=== PATIENT | female | born 1950 | race Caucasian/White ===

== ENCOUNTER 2019-10-29 12:11 | Outpatient (CLI) | payer MEDICARE, SELFPAY ==
--- NOTE | ~2019-10-29 | MM_ITS ---
EXAMINATION: MM screening [facility] BI w jordan HISTORY: Screening TECHNIQUE: Craniocaudal and mediolateral oblique 3-D tomosynthesis images were obtained and synthetic 2-D images were generated. CAD analysis was submitted and interpreted. COMPARISON: Comparison to multiple prior studies sequentially, with oldest reviewed study dated 05/16. BREAST PARENCHYMAL COMPOSITION: There are scattered areas of fibroglandular density. FINDINGS: There is no evidence of suspicious mass, calcification, or architectural distortion to sugg est malignancy in either breast. There has been no suspicious interval change. IMPRESSION: 1. No mammographic evidence of malignancy. 2. Recommend routine screening mammography in one year. BI-RADS Category 1: Negative Reviewed, dictated and finalized at location A.
== END 2019-10-29 12:12 | disposition home or self-care (01) ==
LOC: CHSIMG 12:17
PROVIDERS: PCP Internal Medicine; Visit Provider Internal Medicine
DX: Z12.31 Encounter for screening mammogram for malignant neoplasm of breast (principal)
CPT/HCPCS: 77063; 77067

== ENCOUNTER 2020-03-23 11:12 | Outpatient (CLI) | payer MEDICARE, SELFPAY ==
[2020-03-23 15:27] LABS: SARS-CoV-2 Ag Negative (Negative)
== END 2020-03-23 11:13 | disposition home or self-care (01) ==
LOC: CHSLAB 11:15
PROVIDERS: PCP Internal Medicine; Visit Provider Internal Medicine
DX: Z20.828 Contact with and (suspected) exposure to other viral communicable diseases (principal)
CPT/HCPCS: 87426

== ENCOUNTER 2021-01-26 12:18 | Outpatient (CLI) | payer MEDICARE, SELFPAY ==
--- NOTE | ~2021-01-26 | DEXA_ITS ---
Bone Density Report Name: Geeta Ontiveros Age: 70 Sex: Female Ethnicity: White Date of : 1950 Indication: postmenopausal; screening for osteoporosis; height loss; hysterectomy; Referring Provider: Karis Salter Study: Bone densitometry was performed. Exam Date: January 26, 2021 Accession number: [id number] Bone Density: Region BMD T-score Z-score Classification AP Spine(L1-L4) 1.234 1.7 3.9 Normal Femoral Neck (Left) 0.644 -1.8 0.1 Osteopenia Total Hip (Left) 0.845 -0.8 0.8 Normal Femoral Neck (Right) 0.644 -1.8 0.1 Osteopenia Total Hip (Right) 0.839 -0.8 0.8 Normal Femoral Neck Mean 0.644 -1.8 0.1 Osteopenia Total Hip Mean 0.842 -0.8 0.8 Normal World Health Organization criteria for BMD impression classify patients as: Normal (T-score at or above -1.0), Osteopenia (T-score between -1.0 and -2.5), or Osteoporosis (T-score at or below -2.5). 10-year Fracture Risk(1): Major Osteoporotic Fracture 11% Hip Fracture 2.0% Reported Risk Factors: [place] (), Neck BMD=0.644, BMI=35.1 (1) FRAX(R) Version 3.08. Fracture probability calculated for an untreated patient. Fracture probability may be lower if the patient has received treatment. Clinical Information Provided by Patient: Has used the following medications: Vitamin D, Calcium Has the following medical conditions: Hysterectomy Patient maximum height was 60 Menopause Age: 43 No regular weight bearing exercise Drinks caffeinated beverages Onset of menses at age 11 Missed period for more than 6 months in a row Impression: The patient has low bone mass, based on the Left Femoral Neck T-score. Discussion: BONE DENSITY IS LOW AT ONE OR MORE SKELETAL SITES. This patient's lowest T-score is low at one or more skeletal sites. It meets the World Health Organization's (WHO) criteria for ?low bone mass? (T-score between -1.0 and -2.5). The patient's 10-year risk of fracture as calculated by FRAX is less than the threshold where pharmacological therapy is recommended by the National Osteoporosis Foundation (NOF). However, all treatment decisions require clinical judgment and consideration of individual patient factors, including patient preferences, comorbidities, previous drug use, risk factors not captured in the FRAX model (e.g., frailty, falls, vitamin D deficiency, increased bone turnover, interval significant decline in bone density) and possible under or overestimation of fracture risk by FRAX. The patient should follow a healthful lifestyle (good nutrition with adequate calcium and vitamin D, and appropriate weight-bearing exercise). Follow-Up: Consider repeating this study in 2 to 3 years to reassess this patient's status, or sooner if there is some new clinical indication. Reporte
--- NOTE | ~2021-01-26 | US_ITS ---
EXAMINATION: US carotid duplex BI DATE: 01/26/2021 12:46 INDICATION: Bilateral carotid stenosis TECHNIQUE: Grayscale, color Doppler, and pulsed Doppler images of the cervical carotid arteries were obtained. The degree of vessel stenosis is placed in one of the following categories: normal, <50%, 5 0-69%, >=70% but less than near-occlusion, near-occlusion, or total occlusion. Note that percent sten osis relative to normal distal artery lumen diameter is indirectly measured from velocity measurement s as described by Irineo, et al. Radiology 2003; 229:340-346. COMPARISON: None. FINDINGS: RIGHT: The right common carotid artery (CCA) peak systolic velocity (PSV) is 87 cm/s. The right internal car otid artery (ICA) PSV is 64 cm/s. The right ICA end-diastolic velocity (EDV) is 22 cm/s. The right IC A/CCA PSV ratio is 0.7. Grayscale and color Doppler images yield an estimate of <50% diameter reducti on from plaque in the ICA. The external carotid artery (ECA) PSV is 98 cm/s. There is antegrade flow in the right vertebral artery. LEFT: The left CCA PSV is 76 cm/s. The left ICA PSV is 85 cm/s. The left ICA EDV is 30 cm/s. The left ICA/C CA PSV ratio is 1.1. Grayscale and color Doppler images yield an estimate of <50% diameter reduction from plaque in the ICA. The ECA PSV is 86 cm/s. There is antegrade flow in the left vertebral artery. IMPRESSION: 1. <50% stenosis in the right internal carotid artery. 2. <50% stenosis in the left internal carotid artery. Reviewed, dictated and finalized at location A.
== END 2021-01-26 12:19 | disposition home or self-care (01) ==
LOC: CHSIMG 12:20
PROVIDERS: PCP Internal Medicine; Visit Provider Internal Medicine
DX: I65.23 Occlusion and stenosis of bilateral carotid arteries (principal); M81.0 Age-related osteoporosis without current pathological fracture
CPT/HCPCS: 77080; 93880

== ENCOUNTER 2021-02-16 08:28 | Outpatient (CLI) | payer MEDICARE, SELFPAY ==
--- NOTE | ~2021-02-16 | MM_ITS ---
EXAMINATION: MM screening [facility] BI w jordan HISTORY: Screening mammogram TECHNIQUE: Craniocaudal and mediolateral oblique 3-D tomosynthesis images were obtained and synthetic 2-D images were generated. CAD analysis was submitted and interpreted. COMPARISON: 10/29/2019, 09/14/2018, 09/04/2017 BREAST PARENCHYMAL COMPOSITION: The breasts are almost entirely fatty. FINDINGS: There is no evidence of suspicious mass, calcification, or architectural distortion to sugg est malignancy in either breast. There has been no suspicious interval change. IMPRESSION: 1. No mammographic evidence of malignancy. 2. Recommend routine screening mammography in one year. BI-RADS Category 1: Negative Reviewed, dictated and finalized at location A. E CIRCULAR SAWYER
== END 2021-02-16 08:29 | disposition home or self-care (01) ==
LOC: CHSIMG 08:30
PROVIDERS: PCP Internal Medicine; Visit Provider Internal Medicine
DX: Z12.31 Encounter for screening mammogram for malignant neoplasm of breast (principal)
CPT/HCPCS: 77063; 77067

== ENCOUNTER 2022-04-25 09:08 | Outpatient (RCR) | payer MEDICARE, SELFPAY ==
--- NOTE | 2022-04-27 07:19 | BUPTOPEVAL1 ---
Assessment and note entered by Rodrigo Jerome Evaluation Information Assessment Status Evaluation Diagnosis right shoulder pain, left knee pain Onset 01/23/22 Subjective Information Pt. reports that she was going down her steps and missed the last step. She reports that she fell onto the right shoulder. She describes increasing pain in the described lateral brachial region. She states that she feels pain with reaching out away from her body, as well as overhead or behind her back. She has not had an MRI or xray. She is right hand dominant. She reports that she is also having knee pain. She has the right knee replaced. She reports that she gets occasional injections into the left knee. She describes a current burning sensation behind the left knee. She noticed that pain beginning about 3-4 months ago. She reports that pain can be noticed with both sitting and standing activities. She reports that her goal is to decrease her arm and leg pain . Reported Pain Level Pain Score 7,4: Self Report Assessment PT Clinical Summary Pt. is a 72 year old female who enters the clinic with left knee pain and right shoulder pain. She presents with impaired shoulder ROM, impaired proximal u.e. strength, pain at the posterior left knee and impaired gait. Continued skilled PT is indicated in order to improve these areas to allow the pt. to be able to complete all IADL's without limitation. Plan of Care Interventions Electrical Stimulation,Hot Pack/Cold Pack,Manual Therapy,Therapeutic Activities,Therapeutic Exercise,Self-Care/Home Management PT Services Indicated Yes Treatment Frequency and 2x/week x 8 visits Duration These treatments will address the objective and functional deficits as defined above. The patient will be advanced safely and appropriately in order for the patient to progress towards his/her prior level of function. Additional exercises will be introduced and as well as a comprehensive home exercise program upon discharge, if needed, ?to ensure carryover of functional gains achieved in the clinic. This treatment plan has been reviewed and agreement upon by the patient.
== END 2022-05-23 15:48 | disposition home or self-care (01) ==
LOC: CHSPT 09:08
PROVIDERS: PCP Internal Medicine; Visit Provider Internal Medicine
DX: M25.511 Pain in right shoulder (principal); M25.562 Pain in left knee
CPT/HCPCS: 97014; 97110; 97140; 97161; G0283

== ENCOUNTER 2022-04-25 09:40 | Outpatient (CLI) | payer MEDICARE, SELFPAY ==
--- NOTE | ~2022-04-25 | XR_ITS ---
EXAMINATION: XR foot RT min 3V DATE: 04/25/2022 10:09 INDICATION: Painful bump on the dorsum of the right foot TECHNIQUE: Dorsoplantar, two oblique and lateral views of the right foot were obtained. COMPARISON: None. FINDINGS: Bone alignment is normal. No fracture. Subtle flattening of the head of the second metatarsal without subarticular sclerosis likely sequela of chronic osteonecrosis (Freiberg's infraction). Bunion with mild hypertrophic change at the medial head of the first metatarsal. Polyarticular osteoarthritis, mo derate severity with small dorsal osteophytes at the second tarsal metatarsal joint and at the metata rsal sesamoid articulations at the first metatarsophalangeal joint. Additional mild osteoarthritis at many of the remaining tarsal metatarsal and interphalangeal joints. Moderate sized plantar calcaneal spur. Soft tissues are unremarkable. No ankle joint effusion. IMPRESSION: 1. Mild to moderate polyarticular osteoarthritis, most prominent at the right second tarsal metatarsa l and first metatarsophalangeal joints. There are small dorsal osteophytes at the former which could account for the reported painful bump. Reviewed, dictated and finalized at location A. INSPECTOR IMPRESSION: 1. Mild to moderate polyarticular osteoarthritis, most prominent at the right s econd tarsal metatarsal and first metatarsophalangeal joints. There are small d orsal osteophytes at the former which could account for the reported painful bu mp.
--- NOTE | ~2022-04-25 | XR_ITS ---
EXAMINATION: XR foot LT min 3V DATE: 04/25/2022 10:11 INDICATION: Painful bump at the dorsum of the left foot TECHNIQUE: Dorsoplantar, two oblique and lateral views of the left foot were obtained. COMPARISON: None. FINDINGS: Bone alignment is normal. No fracture. Similar finding at the articular surface of the head of the le ft second metatarsal is seen at the contralateral right second metatarsal also consistent with chroni c osteonecrosis (Freiberg's infraction). Polyarticular osteoarthritis, moderate severity at the first metatarsophalangeal, the third and fourth distal interphalangeal joints and a few joints in the midf oot. At the second tarsometatarsal joint there are prominent dorsal osteophytes which might account f or the reported painful bump at the dorsum of the foot. Additional mild osteoarthritis at the remaini ng joints in the mid and forefoot. Small plantar calcaneal spur. Soft tissues are unremarkable. No le ft ankle joint effusion. IMPRESSION: 1. Mild to moderate polyarticular osteoarthritis with prominent dorsal marginal osteophytes at the se cond tarsometatarsal joint which likely accounts for the reported painful bump. Reviewed, dictated and finalized at location A. UCT MARKETING ANALYST IMPRESSION: 1. Mild to moderate polyarticular osteoarthritis with prominent dorsal marginal osteophytes at the second tarsometatarsal joint which likely accounts for the reported painful bump.
== END 2022-04-25 09:41 | disposition home or self-care (01) ==
LOC: CHSIMG 09:43
PROVIDERS: PCP Internal Medicine; Visit Provider Internal Medicine
DX: M79.672 Pain in left foot (principal); M79.671 Pain in right foot; M19.072 Primary osteoarthritis, left ankle and foot; M19.071 Primary osteoarthritis, right ankle and foot
CPT/HCPCS: 73630

== ENCOUNTER 2022-08-16 08:31 | Outpatient (CLI) | payer MEDICARE, SELFPAY ==
--- NOTE | ~2022-08-16 | MM_ITS ---
EXAMINATION: MM screening [facility] BI w jordan HISTORY: Screening mammogram TECHNIQUE: Craniocaudal and mediolateral oblique 3-D tomosynthesis images were obtained and synthetic 2-D images were generated. CAD analysis was submitted and interpreted. COMPARISON: 02/16/2021, 10/29/2019, 09/14/2018 BREAST PARENCHYMAL COMPOSITION: The breasts are almost entirely fatty. FINDINGS: No suspicious mass, calcification, or architectural distortion are identified in either humberto ast to suggest malignancy. There has been no suspicious interval change. IMPRESSION: 1. No mammographic evidence of malignancy. 2. Recommend routine screening mammography in one year. BI-RADS Category 1: Negative Reviewed, dictated and finalized at location A.
== END 2022-08-16 08:32 | disposition home or self-care (01) ==
LOC: CHSIMG 08:32
PROVIDERS: PCP Internal Medicine; Visit Provider Internal Medicine
DX: Z12.31 Encounter for screening mammogram for malignant neoplasm of breast (principal)
CPT/HCPCS: 77063; 77067

== ENCOUNTER 2023-02-14 14:50 | Outpatient (CLI) | payer MEDICARE, SELFPAY ==
--- NOTE | ~2023-02-14 | XR_ITS ---
EXAMINATION: XR knee LT min 4V DATE: 02/14/2023 15:17 INDICATION: Left knee pain TECHNIQUE: Four views of the left knee were obtained. COMPARISON: 10/25/2017 FINDINGS: Alignment is normal. No fracture or osteochondral lesion. There is tricompartmental osteoar thritis, severe in the medial compartment and medial patellofemoral compartment. No joint effusion/sy novitis. Soft tissues are unremarkable. Changes of right knee arthroplasty are noted. IMPRESSION: 1. Osteoarthritis without acute osseous abnormality. Reviewed, dictated and finalized at location F. ING APPAREL ASSEMBLER
[2023-02-14 15:38] LABS: Free T3 1.59 pg/mL (2.18-3.98); Free T4 Free Thyroxine 0.56 ng/dL (0.76-1.46); Thyroid Stimulating Hormone 9.99 uIU/mL (0.36-3.74)
== END 2023-02-14 14:51 | disposition home or self-care (01) ==
LOC: CHSLAB 14:52
PROVIDERS: PCP Internal Medicine; Visit Provider Internal Medicine
DX: M25.561 Pain in right knee (principal); M81.0 Age-related osteoporosis without current pathological fracture; E03.4 Atrophy of thyroid (acquired); M17.12 Unilateral primary osteoarthritis, left knee
CPT/HCPCS: 36415; 73564; 84439; 84443; 84481

== ENCOUNTER 2023-03-13 12:34 | Outpatient (CLI) | payer MEDICARE, SELFPAY ==
--- NOTE | ~2023-03-13 | MR_ITS ---
MRI of the left knee Clinical history: Pain Technique: Coronal proton density and proton density-weighted images, sagittal proton-density and T2 fat-sat images, and axial proton-density fat-saturated images were acquired. Findings: ACL is intact, with probable mucoid degenerative change. Posterior cruciate ligament is int act. Medial collateral ligament and the lateral collateral ligament complex are intact. Popliteus ten don is intact. There is complex, predominantly radial tearing at the posterior root/posterior horn of the medial men iscus, partial extrusion of the body segment of the medial gutter. No lateral meniscal tear identifie d. There is extensive high-grade chondral malacia on both sides of the medial compartment, with subchond ral cystic change present. Articular cartilage in the lateral compartment is minimally thinned. There is extensive high-grade chondral malacia the patellofemoral compartment, especially lateral patellar facet. Small to moderate tricompartmental osteophytes are present. Extensor mechanism is intact. There is moderate joint effusion. No Mijares's cyst. Impression: Moderate to advanced tricompartmental osteoarthritis, as detailed above, worst in the medial compartm ent. Complex, predominantly radial tearing of the posterior root/posterior horn of the medial meniscus. Moderate joint effusion. Mucoid degenerative change of the ACL without evidence of tear. Reviewed, dictated and finalized at location M. ITY CONTROL TECH RAW MATERIALS Impression: Moderate to advanced tricompartmental osteoarthritis, as detailed above, worst in the medial compartment. Complex, predominantly radial tearing of the posterior root/posterior horn of t he medial meniscus. Moderate joint effusion. Mucoid degenerative change of the ACL without evidence of tear.
== END 2023-03-13 12:35 | disposition home or self-care (01) ==
PROVIDERS: PCP Internal Medicine; Visit Provider Internal Medicine
DX: M17.12 Unilateral primary osteoarthritis, left knee (principal); S83.232A Complex tear of medial meniscus, current injury, left knee, initial encounter; M25.462 Effusion, left knee
CPT/HCPCS: 73721

== ENCOUNTER 2023-04-17 05:54 | Day surgery (SDC) | payer MEDICARE, SELFPAY ==
[2023-04-17 06:28] VITALS: BP 156/86; PULSE 62; RESP 16; TEMP 36.9; O2SAT 97
[2023-04-17] MEDS: LACTATED RINGERS 1,000 ML 150 ML IV CONT (07:00)
--- NOTE | 2023-04-17 07:04 | WPDANESEPPF ---
Anes - Initial Pre Proc Eval Procedure: Operation Date: 04/17/23 07:30 Proposed Procedures p Screening Colonoscopy - Jorge Cruz DO Date/Time: 04/17/23 07:04 Surgeon: Jorge Cruz DO Pre Op Diagnosis: Positive Cologuard Patient Data Age: 73 Gender: F Height: 1.52 m Weight: 77.3 kg Last Vital Signs Temp 36.9 C 04/17/23 06:28 Pulse 62 04/17/23 06:28 Resp 16 04/17/23 06:28 BP 156/86 H 04/17/23 06:28 Pulse Ox 97 04/17/23 06:28 O2 Del Method Room Air 04/17/23 06:28 Allergies Allergy/AdvReac Type Severity Reaction Status Date / Time codeine AdvReac Mild Nausea and Verified 04/17/23 06:26 Vomiting Home Medications Medication Instructions Recorded Confirmed Type cholecalciferol (vitamin D3) 125 125 mcg PO DAILY 05/27/22 04/17/23 History mcg (5,000 unit) capsule levothyroxine 13 mcg/mL oral 0.125 mcg PO DAILY 05/27/22 04/17/23 History solution losartan 50 mg-hydrochlorothiazide 1 tablet PO DAILY 05/27/22 04/17/23 History 12.5 mg tablet multivitamin 1 tablet PO DAILY 03/28/23 04/17/23 History Patient hx anesthesia problems: none Family hx anesthesia problems: none Results Review: All pre-operative results and documents have been reviewed as part of the pre-operative evaluation. [facility] Past Medical History Medical History (Updated 05/23/22 @ 11:32 by Humberto Chirinos MD) Arthritis of foot, left, degenerative Arthritis of foot, right, degenerative Surgical History Surgical History H/O gastric bypass Social History Social History Smoking status: Never smoker Alcohol intake: current Drinks per week: 2 Substance use type: does not use Living arrangements: with family Spiritual care concerns: No Anes - Eval Final PreProcedure Day of Procedure 04/17/23 07:04 Patient weight: obese Heart: regular rate and rhythm Lungs: clear to auscultation Airway: Mallampati scale class II Neurological: alert and oriented Last oral intake: >/= 8 hours ASA classification: III Emergent: no Anesthetic plan: proceed Anesthesia type and monitoring: general GIVS and standard monitoring Results Review: All pre-operative results and documents have been reviewed as part of the pre-operative evaluation. Informed Consent: The patient's anesthetic plan and its attendant risks and benefits were discussed with the patient/family/POA. Questions were solicited and answers provided to the satisfaction of the patient/family/POA.
--- NOTE | 2023-04-17 07:21 | PM.IMHP ---
H&P: HPI History of Present Illness Date/Time: 04/17/23 07:21 Chief Complaint: + Cologuard Narrative: 73 yo woman presents for colonoscopy. She recently had a positive cologuard test. She denies hematochezia or melena. She had a colonoscopy over 10 years ago at [facility]. No fam hx colon cancer. Review of Systems Review of Systems: All systems reviewed & are unremarkable except as noted in HPI and below Constitutional: Constitutional: Denies chills, Denies fever(s), Denies headache(s) and Denies weight loss Eyes: Eyes: Denies change in vision ENT: Denies dizziness, Denies headache(s), Denies neck mass and Denies throat swelling Cardiovascular: Cardiovascular: Denies chest pain, Denies lightheadedness and Denies dyspnea Respiratory: Respiratory: Denies cough, Denies dyspnea and Denies wheezing Gastrointestinal: Gastrointestinal: Denies abdominal pain, Denies change in bowel habits, Denies nausea and Denies vomiting Genitourinary: Genitourinary: Denies hematuria and Denies dysuria Musculoskeletal: Musculoskeletal: Reports as per HPI Integumentary/Breasts: Skin/Breast: Reports as per HPI Neurologic: Denies dizziness and Denies headache(s) Allergic/Immunologic: Allergic/Immunologic: Denies throat swelling and Denies wheezing [facility] Past Medical History Medical History (Updated 04/17/23 @ 07:23 by Jorge Cruz DO) Arthritis of foot, left, degenerative Arthritis of foot, right, degenerative Surgical History Surgical History H/O gastric bypass Social History Social History Smoking status: Never smoker Alcohol intake: current Drinks per week: 2 Substance use type: does not use Living arrangements: with family Spiritual care concerns: No Meds Home Medications and Allergies Home Medications Medication Instructions Recorded Confirmed Type cholecalciferol (vitamin D3) 125 125 mcg PO DAILY 05/27/22 04/17/23 History mcg (5,000 unit) capsule levothyroxine 13 mcg/mL oral 0.125 mcg PO DAILY 05/27/22 04/17/23 History solution losartan 50 mg-hydrochlorothiazide 1 tablet PO DAILY 05/27/22 04/17/23 History 12.5 mg tablet multivitamin 1 tablet PO DAILY 03/28/23 04/17/23 History Allergies Allergy/AdvReac Type Severity Reaction Status Date / Time codeine AdvReac Mild Nausea and Verified 04/17/23 06:26 Vomiting Vital Signs Vital Signs - 24 hr 04/17/23 06:28 Temperature 36.9 C Pulse Rate 62 Respiratory Rate 16 Blood Pressure 156/86 H Pulse Oximetry 97 Oxygen Delivery Room Air Exam Const: General: no acute distress and alert Orientation/consciousness: patient oriented x3 HENMT: Head: normocephalic and atraumatic Ears: hearing grossly normal bilaterally Face/Nose/Sinus: Normal nares present Mouth: Yes Normal oral and palatal mucosa present Eyes: Periorbital: periorbital findings normal Sclera: sclerae normal EOM: EOMs intact bilaterally Neck: Neck: normal visual inspection, no lymphadenopathy and trachea midline Chest: Chest palpation & inspection: normal inspection of the chest Resp: Effort & Inspection: normal respiratory effort Auscultation: clear to auscultation bilaterally Cardio: Jugular venous distension: no JVD Rate: regular rate Rhythm: regular rhythm Heart sounds: S1 normal heart sound present and S2 normal heart sound present Peripheral pulses: Peripheral pulses 2+ throughout GI: Inspection: normal to inspection GI Palp: Yes Soft to palpation, No Tenderness to palpation present (GI), No Guarding due to palpation present (GI) and No Rebound tenderness present Percussion: Yes normal to percussion Auscultation: normal bowel sounds : General: Yes no CVA tenderness Back/Spine/Pelvis: Back: no CVA tenderness Neuro: General: patient oriented x3, no focal motor deficits and CN's II-XI intact bilaterally Cognition (Neuro):
[2023-04-17 08:00] VITALS: BP 109/53; PULSE 55; RESP 14; O2SAT 98
[2023-04-17 08:10] VITALS: BP 125/79; PULSE 63; RESP 16; O2SAT 99
[2023-04-17 08:20] VITALS: BP 130/77; PULSE 60; RESP 16; O2SAT 99
--- NOTE | 2023-04-17 08:56 | WPDANESPN ---
Anes - Prog Note Post-Op Date/Time: 04/17/23 08:56 Cardiovascular status: normal Respiratory status: normal Airway patency: baseline Mental status: baseline Post-Op hydration status: normal Vital Signs: Last Vital Signs Temp 36.9 C 04/17/23 06:28 Pulse 60 04/17/23 08:20 Resp 16 04/17/23 08:20 BP 130/77 04/17/23 08:20 Pulse Ox 99 04/17/23 08:20 O2 Del Method Room Air 04/17/23 08:20 Pain Score (VAS): 0 I/O: Intake & Output 04/16/23 04/17/23 04/17/23 23:59 07:59 15:59 Intake Total 400 200 Balance 400 200 Post-procedural complaints: none Patient Feedback: Patient satisfied with anesthetic care. Other Findings: Patient vital signs back to baseline. Patient denies nausea and vomiting. Patient's pain under control. Patient OK for discharge.
== END 2023-04-17 08:49 | disposition home or self-care (01) ==
PROVIDERS: PCP Internal Medicine; Visit Provider Surgery
PROC: 0DJD8ZZ Inspection of Lower Intestinal Tract, Via Natural or Artificial Opening Endoscopic (ICD-10-PCS; CPT 45378; principal; 2023-04-17 07:30)
DX: R19.5 Other fecal abnormalities (principal); K64.8 Other hemorrhoids
CPT/HCPCS: 45378

== ENCOUNTER 2023-08-18 07:22 | Outpatient (CLI) | payer MEDICARE, SELFPAY ==
--- NOTE | ~2023-08-18 | MM_ITS ---
EXAMINATION: MM screening [facility] BI w jordan HISTORY: Screening mammogram TECHNIQUE: Craniocaudal and mediolateral oblique 3-D tomosynthesis images were obtained and synthetic 2-D images were generated. CAD analysis was submitted and interpreted. COMPARISON: 08/16/2022, 02/16/2021 bilateral screening mammogram examinations BREAST PARENCHYMAL COMPOSITION: The breasts are almost entirely fatty. FINDINGS: There is no evidence of suspicious mass, calcification, or architectural distortion to sugg est malignancy in either breast. There has been no suspicious interval change. IMPRESSION: 1. No mammographic evidence of malignancy. 2. Recommend routine screening mammography in one year. BI-RADS Category 1: Negative Reviewed, dictated and finalized at location B.
--- NOTE | ~2023-08-18 | DEXA_ITS ---
? Bone Density Report? Name:? AL RODRIGUEZ A Patient ID:??? [id number] Age:? 73 Sex:? Female Ethnicity:? White Date of : 1950 Indication: postmenopausal; screening for osteoporosis; height loss; hysterectomy; Referring Provider: Karis Salter Study: Bone densitometry was performed. Exam Date: August 18, 2023 Accession number: [id number] Bone Density: Region? BMD??? T-score? Z-score ??Classification AP Spine(L1-L4)? 1.215??? 1.5?3.9? Normal Femoral Neck (Left)? 0.619?? -2.1? 0.0? Osteopenia Total Hip (Left)? 0.825?? -1.0? 0.8?Normal Femoral Neck (Right)? 0.652?? -1.8? 0.3? Osteopenia Total Hip (Right)? 0.866?? -0.6? 1.1? Normal Femoral Neck Mean? 0.635?? -1.9? 0.1? Osteopenia Total Hip Mean? 0.846?? -0.8? 1.0? Normal World Health Organization criteria for BMD impression classify patients as: Normal (T-score at or above -1.0), Osteopenia (T-score between -1.0 and -2.5), or Osteoporosis (T-score at or below -2.5). 10-year Fracture Risk(1): Major Osteoporotic Fracture? 12% Hip Fracture? 3.0% Reported Risk Factors: [place] (), Neck BMD=0.619, BMI=33.7 (1) FRAX? Version 3.08. Fracture probability calculated for an untreated patient. Fracture probability may be lower if the patient has received treatment. Clinical Information Provided by Patient: Has used the following medications: Vitamin D, Calcium, multi Has the following medical conditions: Hysterectomy Patient maximum height was 60 Menopause Age: 43 Does not regularly consume dairy products Drinks caffeinated beverages Onset of menses at age 11 Number of children 2 Impression: The patient has low bone mass, based on the Left Femoral Neck T- score. Discussion: BONE DENSITY IS LOW AT ONE OR MORE SKELETAL SITES. This patient's lowest T-score is low at one or more skeletal sites.? It meets the World Health Organization's (WHO) criteria for ?low bone mass?? (T-score between -1.0 and -2.5).? The patient's 10-year risk of fracture as calculated by FRAX is less than the threshold where pharmacological therapy is recommended by the National Osteoporosis Foundation (NOF).? However, all treatment decisions require clinical judgment and consideration of individual patient factors, including patient preferences, comorbidities, previous drug use, risk factors not captured in the FRAX model (e.g., frailty, falls, vitamin D deficiency, increased bone turnover, interval significant decline in bone density) and possible under or overestimation of fracture risk by FRAX. The patient should follow a healthful lifestyle (good nutrition with adequate calcium and vitamin D, and appropriate weight-bearing exercise). Follow-Up: Consider repeating this study in 2 to 3 years to reassess this patient's status, or sooner if there is some new clinical indication. Reported by: Dr. Ramesh Gill on 08/18/2023 2:42:00 PM. SAVANA
== END 2023-08-18 07:23 | disposition home or self-care (01) ==
LOC: CHSIMG 07:25
PROVIDERS: PCP Internal Medicine; Visit Provider Internal Medicine
DX: Z12.31 Encounter for screening mammogram for malignant neoplasm of breast (principal); Z78.0 Asymptomatic menopausal state; M85.89 Other specified disorders of bone density and structure, multiple sites
CPT/HCPCS: 77063; 77067; 77080

== ENCOUNTER 2024-07-22 09:56 | Outpatient (RCR) | payer MEDICARE, SELFPAY ==
--- NOTE | 2024-07-22 13:02 | PTOPEVAL1 ---
Assessment and note entered by Rodrigo Jerome Evaluation Information Assessment Status Evaluation ICD-10 Condition Codes (PT) Pain in left knee M25.562 Onset 07/22/22 Subjective Information Pt. reports that she developed pain behind the left knee about 2 years ago. She reports that her pain is constant. She states that she notices pain with bending the left knee, squatting and kneeling. She reports that getting out of a vehicle is difficult due to pain. Pt. reports that she is very cautious with steps as they increase her pain. She reports she has had xray and does have a Bakers cyst. She states that she has had a right knee replacement and no surgery on the left. She reports that pain and stiffness limit her ability to stand for long duration and complete household activities. She reports that her goal is to get rid of the pain behind the left knee. Reported Pain Level Pain Score 6: Self Report Assessment PT Clinical Summary Pt. is a 74 year old female who enters the clinic with a diagnosis of left knee pain. She presents with impaired gait, impaired left knee ROM, proximal l.e. weakness, pain and functional decline. Continued skilled PT is indicated in order to improve these areas to improve patient comfort and performance with IADL's. Plan of Care Interventions Electrical Stimulation,Gait Training,Hot Pack/Cold Pack,Manual Therapy,Neuro Re-education,Patient/ Caregiver Education,Therapeutic Activities, Therapeutic Exercise PT Services Indicated Yes Treatment Frequency and 2x/week x 8 visits Duration These treatments will address the objective and functional deficits as defined above. The patient will be advanced safely and appropriately in order for the patient to progress towards his/her prior level of function. Additional exercises will be introduced and as well as a comprehensive home exercise program upon discharge, if needed, ?to ensure carryover of functional gains achieved in the clinic. This treatment plan has been reviewed and agreement upon by the patient.
--- NOTE | 2024-08-08 16:34 | PCPTNOTE ---
I reviewed the Student Therapist's documentation and agree with the findings. -Chiquis Montalvo, PT
--- NOTE | 2024-08-21 16:39 | OPREHPOC ---
Outpatient Therapy Plan of Care This is a Multidisciplinary Plan of Care that may contain components documented by all disciplines (PT, OT, and ST.) PT Problem 1 PT Problem #1 Knowledge Deficit PT Goal 1 Goal / Goal Update Pt. will be independent with a HEP addressing proximal l.e. strength and left knee mobility Target Visit 2 Progress Met PT Problem 2 PT Problem #2 Impaired Range of Motion PT Goal 1 Goal / Goal Update Pt. will demonstrate 0-125 degrees left knee AROM. Target Visit 8 Progress Not Met PT Problem 3 PT Problem #3 Impaired Strength PT Goal 1 Goal / Goal Update Pt. will present with 5/5 bilateral proximal l.e. strength Target Visit 8 Progress Not Met PT Problem 4 PT Problem #4 Impaired Functional Mobility PT Goal 1 Goal / Goal Update Pt. will present with less than 20% limitation on the LEFS indicating significant functional improvement -not met Pt. will complete the 6 minute walk test with a total distance of 1200' or greater with equal right and left stance time. Met Pt. will navigate 10-15 steps with reciprocal pattern with 1/10 pain at worst. -not met Target Visit 8 Progress Partially Met
--- NOTE | 2024-08-21 16:39 | PTOPREEVAL ---
Assessment and note entered by JT File, PT Evaluation Information Assessment Status Re-evaluation ICD-10 Condition Codes (PT) Pain in left knee M25.562 Onset 07/22/22 Subjective Information Pt reports that it isnt bad today. Pt reports that she still struggles getting out of the car, and going up and down the stairs. Pt feels like she has more motion, but doesnt feel like she has made any other improvements. Pt reports that she has an appoitmnet with her physician in August. Reported Pain Level Pain Score 5: Self Report Assessment PT Clinical Summary Mrs. Ontiveros completed her 8th skilled PT vist. Pt still is limited in L knee ROM, LE strength, and functional mobility. Pt has not met most of her goals and still reports pain. She also reports she does not feel skilled PT has helped much yet. She will return to her MD for follow up in mid August., Skilled PT to be held until after the pt has seen the physician. Pt was instructed to continue HEP in the meantime. Plan of Care Interventions Electrical Stimulation,Gait Training,Hot Pack/Cold Pack,Manual Therapy,Neuro Re-education,Patient/ Caregiver Education,Therapeutic Activities, Therapeutic Exercise PT Services Indicated Yes Treatment Frequency and hold POC, patient will continue with HEP Duration independent in the meantime. These treatments will address the objective and functional deficits as defined above. The patient will be advanced safely and appropriately in order for the patient to progress towards his/her prior level of function. Additional exercises will be introduced and as well as a comprehensive home exercise program upon discharge, if needed, ?to ensure carryover of functional gains achieved in the clinic. This treatment plan has been reviewed and agreement upon by the patient.
--- NOTE | 2024-11-12 14:54 | PCPTNOTE ---
discharged due to time between sessions
== END 2024-10-20 23:59 | disposition home or self-care (01) ==
LOC: CHSPT 09:56
PROVIDERS: PCP Internal Medicine; Visit Provider Internal Medicine
DX: M25.562 Pain in left knee (principal)
CPT/HCPCS: 97014; 97110; 97140; 97161; G0283

== ENCOUNTER 2024-08-21 07:45 | Outpatient (CLI) | payer MEDICARE, SELFPAY ==
--- NOTE | ~2024-08-21 | MM_ITS ---
EXAMINATION: MM screening noble BI w jordan HISTORY: Screening TECHNIQUE: Craniocaudal and mediolateral oblique 3-D tomosynthesis images were obtained and synthetic 2-D images were generated. CAD analysis was submitted and interpreted. COMPARISON: Comparison to multiple prior studies sequentially, with oldest reviewed study dated 09/04. BREAST PARENCHYMAL COMPOSITION: Not dense: There are scattered areas of fibroglandular density. FINDINGS: There is no evidence of suspicious mass, calcification, or architectural distortion to sugg est malignancy in either breast. There has been no suspicious interval change. IMPRESSION: 1. No mammographic evidence of malignancy. 2. Recommend routine screening mammography in one year. BI-RADS Category 1: Negative Reviewed, dictated and finalized at location A.
== END 2024-08-21 07:46 | disposition home or self-care (01) ==
LOC: CHSIMG 07:47
PROVIDERS: PCP Internal Medicine; Visit Provider Internal Medicine
DX: Z12.31 Encounter for screening mammogram for malignant neoplasm of breast (principal)
CPT/HCPCS: 77063; 77067

== ENCOUNTER 2024-10-18 13:57 | Emergency (ER) | payer MEDICARE, SELFPAY ==
[2024-10-18 13:57] VITALS: BP 130/65; PULSE 65; RESP 18; TEMP 37.1; O2SAT 99
--- NOTE | 2024-10-18 13:58 | ED_ITS ---
HPI - Skin/Abscess/Foreign Bdy General Chief complaint: Skin/Abscess/Foreign Body Stated complaint: blister right foot Source: patient Mode of arrival: ambulatory Limitations: no limitations History of Present Illness HPI narrative: 74-year-old female with a history of hypertension, hypothyroidism, dyslipidemia presents to the ED with -- 5 cm X 3 cm blister over the top of her left foot. the blister is not caus ing any symptoms. No history of trauma. Does not remember having an insect bite. She had gone on a vacation and was walking on sea water. complaint: other ( Blister) Onset (ago): day(s) ( 3 days) Tetanus up to date: no Location: L foot Severity: mild Associated symptoms: denies other symptoms Treatments prior to arrival: none Related Data Home Medications ?Medication ?Instructions ?Recorded ?Confirmed ?Last Taken ?Type cholecalciferol (vitamin D3) 125 125 mcg PO DAILY 05/27/22 09/11/24 04/14/23 History mcg (5,000 unit) capsule levothyroxine 13 mcg/mL oral 0.125 mcg PO DAILY 05/27/22 09/11/24 04/16/23 History solution losartan 50 mg-hydrochlorothiazide 1 tablet PO DAILY 05/27/22 09/11/24 04/16/23 History 12.5 mg tablet multivitamin 1 tablet PO DAILY 03/28/23 09/11/24 04/14/23 History Allergies Allergy/AdvReac Type Severity Reaction Status Date / Time codeine AdvReac Mild Nausea and Verified 10/18/24 14:02 Vomiting Review of Systems Review of Systems: All systems reviewed & are unremarkable except as noted in HPI and below PMFSH Past Medical History Medical History Arthritis of foot, right, degenerative Arthritis of foot, left, degenerative Surgical History Surgical History History of hysterectomy History of right knee joint replacement H/O gastric bypass Social History Social History Smoking status: Never smoker Alcohol intake: current Drinks per week: 2 Substance use type: does not use Do You Feel Safe in your Home?: Yes Lack of Transportation: No Lack of Food: Never True Current Housing: I Have Housing Concerned About Future Housing: No Difficulty Paying Gas/Electric Bills: No Difficulty Paying for Meds: No Currently Unemployed: No Education: High School Diploma/GED Difficulty w/ Childcare or Family Care: No Living arrangements: with family Spiritual care concerns: No Exam Narrative: Vitals are stable. Const: General: no acute distress Nutritional Appearance: well nourished Orientation/consciousness: patient oriented x3 Limitations: no limitations HENMT: Head: normal to inspection Ears: external ears normal Face/Nose/Sinus: Normal external nose present Face and sinus: normal facial exam Mouth: Yes Normal oral and palatal mucosa present Throat: posterior oropharynx normal Eyes: Conjunctivae: conjunctivae normal Pupils: Equal, round and reactive pupils present EOM: EOMs intact bilaterally Direct Ophthalmoscopy: no photophobia Neck: Neck: normal visual inspection, no lymphadenopathy and no meningeal signs Resp: Effort & Inspection: normal respiratory effort Auscultation: clear to auscultation bilaterally Cardio: Rate: regular rate Rhythm: regular rhythm GI: GI Palp: Yes Soft to palpation Auscultation: normal bowel sounds Other: No tenderness/ rigidity / rebound. : General: Yes no CVA tenderness Back/Spine/Pelvis: Back: no CVA tenderness Skin: General skin exam: normal color Other: 5 cms X 3 cms Blister on the top of th e left foot. Nontender. No erythema around the blister. 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 The patient drinks occasionally. Will treat for possible vibrio vulnificus infection wit Doxycycline for 10 days Vital Signs Vital signs: Vital Signs Temperature 37.1 C 10/18/24 13:57 Pulse Rate 65 10/18/24 13:57 Respiratory Rate 18 10/18/24 13:57 Blood Pressure 130/65 10/18/24 13:57 Pulse Oximetry 99 10/18/24 13:57 Oxygen Delivery Room Air 10/18/24 13:57 Temperature 37.1 C 10/18/24 13:57 Pulse Rate 65 10/18/24 13:57 Respiratory Rate 18 10/18/24 13:57 Blood Pressure 130/65 10/18/24 13:57 Pulse Oximetry 99 10/18/24 13:57 Oxygen Delivery Room Air 10/18/24 13:57 MDM - Skin/Abscess/Foreign Bdy MDM Narrative Medical decision making narrative: Foot blister Differential Diagnosis Differential diagnosis: Likely herpes zoster, allergic reaction to drug and insect bites Medical Records Attestation: I reviewed the patient's medical records. Discharge Plan Discharge Clinical Impression: Blister of foot, left Qualifiers: Encounter type: initial encounter Qualified Code(s): S90.822A - Blister (nonthermal), left foot, initial encounter Patient Disposition: Home Condition: Stable Instructions: Antibiotic Form, Blister (ED) Patient Language: Serbian Prescriptions: New doxycycline hyclate 100 mg capsule 100 mg PO BID Qty: 20 0RF No Action levothyroxine 13 mcg/mL solution 0.125 mcg PO DAILY losartan-hydrochlorothiazide 50-12.5 mg tablet 1 tablet PO DAILY cholecalciferol (vitamin D3) 125 mcg (5,000 unit) capsule 125 mcg PO DAILY multivitamin Tablet 1 tablet PO DAILY Follow-up/Referrals: Karis Salter MD [Primary Care Provider] - Time of Disposition: 14:27
--- OUTSIDE RECORDS SUMMARY | 2024-10-18 13:59 | XMS_ITS | Clinical Summary ---
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 Gender Identity Not on file Sexual Orientation Not on file Plan of Treatment Health Maintenance Due Date Last Done Comments Colorectal Cancer Screening Colonoscopy (10 Years) 1950 Hepatitis C 1967 DTaP, Tdap and Td Vaccines ( 1 - Tdap) 1968 Pneumococcal Vaccine: 50+ Ye ars (1 of 1 - PCV) 1999 Zoster Vaccines (1 of 2) 1999 Dexa Scan (General) 2014 COVID-19 Vaccine (2023-2 5 season) 2023 RSV Immunization or 60+ Years (1 - 1-dose 75+ series) 2024 Meningococcal B Vaccine Aged Out No l onger eligible based on patient's age to complete this topic Meningococcal Vaccine Aged Out No terry antonette eligible based on patient's age to complete this topic RSV Immunizations Under 20 Months Aged Out No longer eligible based on patient's age to complete this topic
--- OUTSIDE RECORDS SUMMARY | 2024-10-18 14:23 | XMS_ITS | Clinical Summary ---
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
[2024-10-18] MEDS: TETANUS,DIPHTHERIA,AC PERTUSSIS ADULT 0.5 ML (ADACEL) IM (14:28)
== END 2024-10-18 14:32 | disposition home or self-care (01) ==
PROVIDERS: Emergency Provider Internal Medicine Critical Care Medicine; PCP Internal Medicine
DX: S90.822A Blister (nonthermal), left foot, initial encounter (principal); I10 Essential (primary) hypertension; E03.9 Hypothyroidism, unspecified; E78.5 Hyperlipidemia, unspecified; Z23 Encounter for immunization; X58.XXXA Exposure to other specified factors, initial encounter
CPT/HCPCS: 90471; 90715; 99283